=== PATIENT | male | born 1945 | race Caucasian/White ===

== ENCOUNTER → 2019-05-01 | Day surgery (SDC) | payer MEDICARE ==
[2019-04-24 13:40] LABS: BASOPHILS % 0.1 % (0.0-1.0); HEMATOCRIT 31.7 % (38.2-49.6); HEMOGLOBIN 9.8 g/dL (14.0-18.0); LYMPHOCYTES # (AUTO) 1.6 (1.0-3.2); LYMPHOCYTES % 11.8 % (18.0-39.1); MEAN CORPUSCULAR HEMOGLOBIN 27.4 pg (28-32); MEAN CORPUSCULAR HGB CONC 30.9 g/dL (31-35); MEAN CORPUSCULAR VOLUME 88.5 fL (81-99); MONOCYTES # (AUTO) 1.1 (0.2-0.8); MONOCYTES % 7.9 % (4.4-11.3); NEUTROPHILS # (AUTO) 10.8 (2.1-6.9); NEUTROPHILS % 79.5 % (38.7-80.0); PLATELET COUNT 223 x10e3/uL (140-360); RED BLOOD COUNT 3.58 x10e6/uL (4.3-5.7); RED CELL DISTRIBUTION WIDTH 14.6 % (11.7-14.4)
[~2019-05-01] MED LIST: ASPIR 8181 MG PO; ATORVASTATIN CA20 MG PO; CETIRIZINE HCL10 MG PO; FLOMAX0.4 MG PO; FLONASE; LEXAPRO10 MG PO; LIDOCAINE HCL 2% LOCAL INJ 5 ML SDV VIAL INJ ONE; LYRICA50 MG PO; METOPROLOL SUCC25 MG PO; MIDAZOLAM HCL 2 MG/2 ML VIAL ONE; MONTELUKAST SOD10 MG PO; NEBULIZER INH; PANTOPRAZOLE SO40 MG PO; PLAVIX75 MG PO; PROBIOTIC & AC1 EACH PO; PROPOFOL IV EMULSION 10 MG/ML 50 ML VIAL ONE; SPIRIVA18 MCG INH; SYMBICORT 16010.2 GM INH; VIT B12 PO
--- OUTSIDE RECORDS SUMMARY | 2019-05-01 06:58 | XMS REPORT ---
Author Author [facility] Address Unknown Phone Unavailable Care Team Providers Care Satellite Tv Technician Name Role Phone Unavailable Unavailable Payers Payer Name Policy Type Policy Number Effective Date Expiration Date Problems This patient has no known problems. Allergies, Adverse Reactions, Alerts Allergy Name Allergy Type Status Severity Reaction(s) Onset Date Inactive Date Treating Clinician Comments No Known Allergies DA Active U 2019-03-25 00:00:00 No Known Allergies DA Active U 2019-02-19 00:00:00 No Known Allergies DA Active U 2019-01-06 00:00:00 No Known Allergies DA Active U 2019-01-03 00:00:00 No Known Allergies DA Active U 2018-12-11 00:00:00 No Known Allergies DA Active U 2018-09-16 00:00:00 No Known Drug Allergies DA Active U 2018-04-09 00:00:00 No Known Drug Allergies DA Active U 2018-03-14 00:00:00 Medications This patient has no known medications. Results Test Description Test Time Test Comments Text Results Atomic Results Result Comments - XR FLUORO FOR SPINE INJ 2019-04-22 17:49:00 Patient Name: NELSY PEDRO Unit No: [id number] EXAMS: CPT CODE: [id number] XR FLUORO FOR SPINE INJ 01649 LUMBAR EPIRADICULAR INJECTION REFERRAL PHYSICIAN: Alejandro Vázquez M.D. PREOPERATIVE DIAGNOSIS: Lumbar Radiculitis POSTOPERATIVE DIAGNOSIS: Status post L4-S1 fusion with radiculitis left lower extremity PROCEDURES PERFORMED: Fluoroscopically guided needle localization of the left L4 and left L5 spinal nerves with transforaminal epidurograms and epidural injection of local anesthetic and steroid. FINDINGS: All fusion hardware appears intact including the interbody spacers. Flow was limited through the left L5-S1 foramen with poor containment within the sleeve. Fairly good flow seen through the foramen at L4-5 with good proximal flow across the L3-4 disc without displacement. Provocation was partially concordant for usual pain at L5. Anesthetic response was positive with the patient noting complete relief of his left lower extremity pain. Preinjection VAS 8/10. Postinjection VAS 0/10. Steroid response pending follow-up. ESTIMATED BLOOD LOSS: Minimal ANESTHESIA: TIVA COMPLICATIONS: None DETAILS OF PROCEDURE: After obtaining stable vital signs, informed consent and IV access, with no contraindications, the patient was taken to the operating room and placed in a prone position with all extremities padded and appropriate monitors placed. The patient was sterilely prepped and draped over the lumbosacral spine. Using fluoroscopic visualization the insertion sites were marked for paravertebral approaches and using standard technique, a 25 gauge needle was advanced to the base of each pedicle without paresthesias. Isovue-300 contrast 0.2 mL of was injected incrementally with frequent negative aspirations to produce each epidurogram. There were no signs of intravascular or intrathecal uptake. Bupivicaine 0.75% 0.25 mL with lidocaine 4% 0.5 mL and Decadron 10 mg was then incrementally injected with frequent negative aspirations and again there were no signs of intravascular or intrathecal uptake. The needles were removed and the patient was taken to the PACU in good condition. at 9061 Reported and signed by: Cy Oconnor M.D. CC: Technologist: Debra Cardoza(Zach) Transcribed D/ (0097) [facility] [place] NAME: NELSY PEDRO [address] [facility] PHYS: Cy Mchugh MD [place], [place] [address] : 1945 AGE: 73 SEX: M LOC: [place] PHONE #: [phone] EXAM DATE: 04/22/2019 STATUS: REG [facility] FAX #: [phone] RAD #: D/C DT PAGE 1 Signed Report Patient Name: NELSY PEDRO Unit No: [id number] EXAMS: CPT CODE: [id number] XR FLUORO FOR SPINE INJ 93981 <Continued> Orig Print D/T: S: 04/22/2019 (1753) [facility] [place] NAME: NELSY PEDRO [address] [facility] PHYS: Cy Mchugh MD [place], [place] [address] : 1945 AGE: 73 SEX: M LOC: [place] PHONE #: [phone] EXAM DATE: 04/22/2019 STATUS: REG [facility] FAX #: [phone] RAD #: D/C DT PAGE 2 Signed Report - XR PELVIS 1/2 VIEWS 2019-04-17 11:02:00 Patient Name: NELSY PEDRO Unit No: [id number] Report Has Been Amended EXAMS: CPT CODE: [id number] XR PELVIS 1/2 VIEWS 01090 Addendum - 04/17/2019 SIGNED 04/17/2019 ADDENDUM: [id number] Addendum: COMMENT: There is a 5 mm nonenhancing left foraminal low signal focus projecting from the disc space. This has an appearance compatible with an approximately 7 mm recurrent disc herniation which impinges and deforms left L4 nerve root within the left neural foramen. This is best seen on sagittal T2-weighted sequence image #4. This finding is discussed with Dr. Vázquez. at 1102 Reported and signed by: Georgette Horta MD Report MRI OF THE LUMBAR SPINE WITH AND WITHOUT CONTRAST DIAGNOSIS: 1. At L1-2, disc desiccation. No central canal or foraminal stenosis. Mild facet arthropathy. 2. At L2-3, mild disc degeneration. Mild disc bulging. Moderate central canal stenosis. Mild to moderate bilateral facet arthropathy. No foraminal stenosis. 3. At L3-4, disc desiccation. Mild to moderate central canal stenosis. Mild bilateral facet arthropathy. No foraminal stenosis. 4. At L4-5, patient status post anterior discectomy and laminectomy. There is enhancing epidural fibrosis. Moderate bilateral foraminal stenosis. 5. At L5-S1, patient status post anterior discectomy and laminectomy. There is enhancing epidural fibrosis. Moderate bilateral foraminal stenosis. COMMENT: COMPARISON: The current exam is compared to a preoperative MRI lumbar spine dated December 11, 2018. Sagittal and axial T1 weighted pre- and postcontrast, sagittal and axial T2 and sagittal STIR sequences are obtained of the lumbar spine. The lumbar vertebrae are within normal limits in signal. The findings [facility] NAME: NELSY PEDRO [address] [facility] PHYS: Alejandro Bolivar MD : 1945 AGE: 73 SEX: M [place] [address] LOC: Y.MRI PHONE #: [phone] EXAM DATE: 03/25/2019 STATUS: DEP CLI FAX #: [phone] RAD #: D/C DT PAGE 1 Signed Report (CONTINUED) Patient Name: NELSY PEDRO Unit No: [id number] Report Has Been Amended EXAMS: CPT CODE: [id number] XR PELVIS 1/2 VIEWS 76198 <Continued> are as above. The conus is in the expected location. AP VIEW PELVIS COMMENT: Patient status post total bilateral hip arthroplasty. No evidence of periprosthetic fracture. Moderate degeneration of the pubic symphysis. at 0862 Reported and signed by: Georgette Horta MD CC: Alejandro Vázquez M.D. Technologist: RT. Ann(R) Transcribed D/ (5983) tBELENGVG [facility] NAME: NELSY PEDRO [address] [facility] PHYS: Alejandro Bolivar MD : 1945 AGE: 73 SEX: M [place] [address] LOC: Y.MRI PHONE #: [phone] EXAM DATE: 03/25/2019 STATUS: DEP CLI FAX #: [phone] RAD #: D/C DT PAGE 2 Signed Report Patient Name: NELSY PEDRO Unit No: [id number] Report Has Been Amended EXAMS: CPT CODE: [id number] XR PELVIS 1/2 VIEWS 24038 <Continued> Orig Print D/T: S: 03/25/2019 (2420) [facility] NAME: NELSY PEDRO [address] [facility] PHYS: Alejandro Bolivar MD : 1945 AGE: 73 SEX: M [place], [place] [address] LOC: Y.MRI PHONE #: [phone] EXAM DATE: 03/25/2019 STATUS: DEP CLI FAX #: [phone] RAD #: D/C DT PAGE 3 Signed Report - MRI L-SPINE W WO CON 2019-04-17 11:02:00 Patient Name: NELSY PEDRO Unit No: [id number] Report Has Been Amended EXAMS: CPT CODE: [id number] MRI L-SPINE W WO CON 88927 Addendum - 04/17/2019 SIGNED 04/17/2019 ADDENDUM: [id number] MRI/[id number] Addendum: COMMENT: There is a 5 mm nonenhancing left foraminal low signal focus projecting from the disc space. This has an appearance compatible with an approximately 7 mm recurrent disc herniation which impinges and deforms left L4 nerve root within the left neural foramen. This is best seen on sagittal T2-weighted sequence image #4. This finding is discussed with Dr. Vázquez. at 1102 Reported and signed by: Georgette Horta MD Report MRI OF THE LUMBAR SPINE WITH AND WITHOUT CONTRAST DIAGNOSIS: 1. At L1-2, disc desiccation. No central canal or foraminal stenosis. Mild facet arthropathy. 2. At L2-3, mild disc degeneration. Mild disc bulging. Moderate central canal stenosis. Mild to moderate bilateral facet arthropathy. No foraminal stenosis. 3. At L3-4, disc desiccation. Mild to moderate central canal stenosis. Mild bilateral facet arthropathy. No foraminal stenosis. 4. At L4-5, patient status post anterior discectomy and laminectomy. There is enhancing epidural fibrosis. Moderate bilateral foraminal stenosis. 5. At L5-S1, patient status post anterior discectomy and laminectomy. There is enhancing epidural fibrosis. Moderate bilateral foraminal stenosis. COMMENT: COMPARISON: The current exam is compared to a preoperative MRI lumbar spine dated December 11, 2018. Sagittal and axial T1 weighted pre- and postcontrast, sagittal and axial T2 and sagittal STIR sequences are obtained of the lumbar spine. The lumbar vertebrae are within normal limits in signal. The findings [facility] NAME: NELSY PEDRO [address] [facility] PHYS: Alejandro Bolivar MD : 1945 AGE: 73 SEX: M [place] [address] LOC: Y.MRI PHONE #: [phone] EXAM DATE: 03/25/2019 STATUS: DEP CLI FAX #: [phone] RAD #: D/C DT PAGE 1 Signed Report (CONTINUED) Patient Name: NELSY PEDRO Unit No: [id number] Report Has Been Amended EXAMS: CPT CODE: [id number] MRI L- SPINE W WO CON 03441 <Continued> are as above. The conus is in the expected location. AP VIEW PELVIS COMMENT: Patient status post total bilateral hip arthroplasty. No evidence of periprosthetic fracture. Moderate degeneration of the pubic symphysis. at 5316 Reported and signed by: Georgette Horta MD CC: Alejandro Vázquez M.D. Technologist: SANJU CROUCH RT(R) Transcribed D/ (5097) BudGVG [facility] NAME: NELSY PEDRO [address] [facility] PHYS: Alejandro Bolivar MD : 1945 AGE: 73 SEX: M [place] [address] LOC: Y.MRI PHONE #: [phone] EXAM DATE: 03/25/2019 STATUS: DEP CLI FAX #: [phone] RAD #: D/C DT PAGE 2 Signed Report Patient Name: NELSY PEDRO Unit No: [id number] Report Has Been Amended EXAMS: CPT CODE: [id number] MRI L- SPINE W WO CON 04079 <Continued> Orig Print D/T: S: 03/25/2019 (5410) [facility] NAME: NELSY PEDRO [address] [facility] PHYS: Alejandro Bolivar MD : 1945 AGE: 73 SEX: M [place] [address] LOC: Y.MRI PHONE #: [phone] EXAM DATE: 03/25/2019 STATUS: DEP CLI FAX #: [phone] RAD #: D/C DT PAGE 3 Signed Report - XR PELVIS 1/2 VIEWS 2019-03-25 23:47:00 Patient Name: NELSY PEDRO Unit No: [id number] EXAMS: CPT CODE: [id number] XR PELVIS 1/2 VIEWS 73111 MRI OF THE LUMBAR SPINE WITH AND WITHOUT CONTRAST DIAGNOSIS: 1. At L1-2, disc desiccation. No central canal or foraminal stenosis. Mild facet arthropathy. 2. At L2-3, mild disc degeneration. Mild disc bulging. Moderate central canal stenosis. Mild to moderate bilateral facet arthropathy. No foraminal stenosis. 3. At L3-4, disc desiccation. Mild to moderate central canal stenosis. Mild bilateral facet arthropathy. No foraminal stenosis. 4. At L4-5, patient status post anterior discectomy and laminectomy. There is enhancing epidural fibrosis. Moderate bilateral foraminal stenosis. 5. At L5-S1, patient status post anterior discectomy and laminectomy. There is enhancing epidural fibrosis. Moderate bilateral foraminal stenosis. COMMENT: COMPARISON: The current exam is compared to a preoperative MRI lumbar spine dated December 11, 2018. Sagittal and axial T1 weighted pre- and postcontrast, sagittal and axial T2 and sagittal STIR sequences are obtained of the lumbar spine. The lumbar vertebrae are within normal limits in signal. The findings are as above. The conus is in the expected location. AP VIEW PELVIS COMMENT: Patient status post total bilateral hip arthroplasty. No evidence of periprosthetic fracture. Moderate degeneration of the pubic symphysis. at 0844 Reported and signed by: Georgette Horta MD CC: Alejandro Vázquez M.D. Technologist: Azeb Clinton RT.(R) Transcribed D/ (2495) t.ANITHAR.GVG [facility] NAME: NELSY PEDRO [address] [facility] PHYS: Alejandro Bolivar MD : 1945 AGE: 73 SEX: M [place] [address] LOC: Y.MRI PHONE #: [phone] EXAM DATE: 03/25/2019 STATUS: REG CLI FAX #: [phone] RAD #: D/C DT PAGE 1 Signed Report Patient Name: NELSY PEDRO Unit No: [id number] EXAMS: CPT CODE: [id number] XR PELVIS 1/2 VIEWS 90097 <Continued> Orig Print D/T: S: 03/25/2019 (6743) [facility] NAME: NELSY PEDRO [address] [place] [address] PHYS: Alejandro Bolivar MD : 1945 AGE: 73 SEX: M [place] [address] LOC: Y.MRI PHONE #: [phone] EXAM DATE: 03/25/2019 STATUS: REG CLI FAX #: [phone] RAD #: D/C DT PAGE 2 Signed Report - MRI L-SPINE W WO CON 2019-03-25 23:47:00 Patient Name: NELSY PEDRO Unit No: [id number] EXAMS: CPT CODE: [id number] MRI L-SPINE W WO CON 85972 MRI OF THE LUMBAR SPINE WITH AND WITHOUT CONTRAST DIAGNOSIS: 1. At L1-2, disc desiccation. No central canal or foraminal stenosis. Mild facet arthropathy. 2. At L2-3, mild disc degeneration. Mild disc bulging. Moderate central canal stenosis. Mild to moderate bilateral facet arthropathy. No foraminal stenosis. 3. At L3-4, disc desiccation. Mild to moderate central canal stenosis. Mild bilateral facet arthropathy. No foraminal stenosis. 4. At L4-5, patient status post anterior discectomy and laminectomy. There is enhancing epidural fibrosis. Moderate bilateral foraminal stenosis. 5. At L5-S1, patient status post anterior discectomy and laminectomy. There is enhancing epidural fibrosis. Moderate bilateral foraminal stenosis. COMMENT: COMPARISON: The current exam is compared to a preoperative MRI lumbar spine dated December 11, 2018. Sagittal and axial T1 weighted pre- and postcontrast, sagittal and axial T2 and sagittal STIR sequences are obtained of the lumbar spine. The lumbar vertebrae are within normal limits in signal. The findings are as above. The conus is in the expected location. AP VIEW PELVIS COMMENT: Patient status post total bilateral hip arthroplasty. No evidence of periprosthetic fracture. Moderate degeneration of the pubic symphysis. at 2345 Reported and signed by: Geogrette Horta MD CC: Alejandro Vázquez M.D. Technologist: SANJU CROUCH RT(R) Transcribed D/ (1264) tGAVIN.GVG [facility] NAME: NELSY PEDRO [address] [facility] PHYS: Alejandro Bolivar MD : 1945 AGE: 73 SEX: M [place], [place] [address] LOC: Y.MRI PHONE #: [phone] EXAM DATE: 03/25/2019 STATUS: REG CLI FAX #: [phone] RAD #: D/C DT PAGE 1 Signed Report Patient Name: NELSY PEDRO Unit No: [id number] EXAMS: CPT CODE: [id number] MRI L-SPINE W WO CON 03296 <Continued> Orig Print D/T: S: 03/25/2019 (4784) [facility] NAME: NELSY PEDRO [address] [facility] PHYS: Alejandro Bolivar MD : 1945 AGE: 73 SEX: M [place], [place] [address] LOC: Y.MRI PHONE #: [phone] EXAM DATE: 03/25/2019 STATUS: REG CLI FAX #: [phone] RAD #: D/C DT PAGE 2 Signed Report - CT L-SPINE W/O CONTRAST 2019-03-10 16:45:00 Patient Name: NELSY PEDRO Unit No: [id number] EXAMS: CPT CODE: [id number] CT L-SPINE W/O CONTRAST 19[address] DIAGNOSIS: 1. At L1-2 there is no evidence for disc bulge or herniation, bony canal or foraminal stenosis. 2. At L2-3 there is a slight retrolisthesis and associated disc bulging with slight narrowing of the foramina. Mild narrowing of the central canal is seen. 3. At L3-4 there is a mild retrolisthesis with disc bulging and slight narrowing of the canal and foramina. 4. At L4-5 the patient is status post discectomy and graft with pedicle screws and rods in the proper position.. Decompression of the canal has been performed. There is mild lateral foraminal narrowing. 5. At L5-S1 the patient is status post discectomy and graft with endplate spur formation and mild foraminal narrowing. Pedicle screws and rods are present in the proper position. COMMENT: COMPARISON: No prior exams available. Scans were performed from L1 to S1 without contrast and reconstructions were obtained. Postsurgical changes are as noted. Disc configurations are as described. Spondylitic changes are as noted. The conus is in the expected location. Atherosclerotic calcification is seen in the aorta and iliac vessels without evidence for aneurysmal dilatation. The description these findings assumes a normal count of 5 lumbar type vertebra. at 5103 Reported and signed by: Alejandro Russell MD CC: Alejandro Vázquez DO Technologist: Aston Garcia,RT(R) CTDI: DLP: 0 Trnscrpt: 03/10/2019 (3856) t.ANITHAR.JCL [facility] NAME: NELSY PEDRO [address] [facility] PHYS: Alejandro Whitney : 1945 AGE: 73 SEX: M [place] [address] LOC: Y.RAD PHONE #: [phone] EXAM DATE: 03/10/2019 STATUS: REG CLI FAX #: [phone] RAD #: D/C DT PAGE 1 Signed Report Patient Name: NELSY PEDRO Unit No: [id number] EXAMS: CPT CODE: [id number] CT L-SPINE W/O CONTRAST 00267 <Continued> Orig Print D/T: S: 03/10/2019 (7535) [facility] NAME: NELSY PEDRO [address] [facility] PHYS: DANETTEJaviAlejandro Rebollar : 1945 AGE: 73 SEX: M [place] [address] LOC: Y.RAD PHONE #: [phone] EXAM DATE: 03/10/2019 STATUS: REG CLI FAX #: [phone] RAD #: D/C DT PAGE 2 Signed Report HGB HCT 2019-02-22 06:53:00 HEMOGLOBIN (test code=HGB) 9.8 g/dL 12-16 HEMATOCRIT (test code=HCT) 31.0 % 37-47 HGB [id number] 06:23:00* Test Item Value Reference Range Comments HEMOGLOBIN (test code=HGB) 9.9 g/dL 12-16 HEMATOCRIT (test code=HCT) 30.5 % 37-47 - XR SPINE 1 V SPEC [id number] 10:43:00 Patient Name: NELSY PEDRO Unit No: [id number] EXAMS: CPT CODE: [id number] XR SPINE 1 V SPEC LEVEL 20679 INTRAOPERATIVE LATERAL LUMBAR SPINE Film 1. Markers are posterior to L2-3 and S1. Film 2. A surgical instrument is on the posterior elements of L4. Film 3. Anterior and posterior fusion has been performed from L4 to S1. at 1043 Reported and signed by: Alejandro Russell MD CC: Alejandro Vázquez M.D. Technologist: Nani Salas(R) Transcribed D/ (1043) DhavalL [facility] NAME: NELSY PEDRO [address] [place] [address] PHYS: Alejandro Bolivar MD : 1945 AGE: 73 SEX: M [place] [address] LOC: Y.507 A PHONE #: [phone] EXAM DATE: 02/19/2019 STATUS: ADM IN FAX #: [phone] RAD #: D/C DT PAGE 1 Signed Report Patient Name: NELSY PEDRO Unit No: [id number] EXAMS: CPT CODE: [id number] XR SPINE 1 V SPEC LEVEL 03549 <Continued> Orig Print D/T: S: 02/20/2019 (0297) [facility] NAME: NELSY PEDRO [address] [place] [address] PHYS: Alejandro Bolivar MD : 1945 AGE: 73 SEX: M [place] [address] LOC: Y.507 A PHONE #: [phone] EXAM DATE: 02/19/2019 STATUS: ADM IN FAX #: [phone] RAD #: D/C DT PAGE 2 Signed Report - XR SPINE 1 V SPEC [id number] 10:43:00 Patient Name: NELSY PEDRO Unit No: [id number] EXAMS: CPT CODE: [id number] XR SPINE 1 V SPEC LEVEL 83478 INTRAOPERATIVE LATERAL LUMBAR SPINE Film 1. Markers are posterior to L2-3 and S1. Film 2. A surgical instrument is on the posterior elements of L4. Film 3. Anterior and posterior fusion has been performed from L4 to S1. at 1043 Reported and signed by: Alejandro Russell MD CC: Alejandro Vázquez M.D. Technologist: MARY HERNANDEZ. RT(R) Transcribed D/ (9027) Leyda [facility] NAME: NELSY PEDRO [address] [facility] PHYS: Alejandro Bolivar MD : 1945 AGE: 73 SEX: M [place], [place] [address] LOC: Y.507 A PHONE #: [phone] EXAM DATE: 02/19/2019 STATUS: ADM IN FAX #: [phone] RAD #: D/C DT PAGE 1 Signed Report Patient Name: NELSY PEDRO Unit No: [id number] EXAMS: CPT CODE: [id number] XR SPINE 1 V SPEC LEVEL 55397 <Continued> Orig Print D/T: S: 02/20/2019 (7536) [facility] NAME: NELSY PEDRO [address] [facility] PHYS: Alejandro Bolivar MD : 1945 AGE: 73 SEX: M [place], [place] [address] LOC: Y.507 A PHONE #: [phone] EXAM DATE: 02/19/2019 STATUS: ADM IN FAX #: [phone] RAD #: D/C DT PAGE 2 Signed Report - XR SPINE 1 V SPEC [id number] 10:43:00 Patient Name: NELSY PEDRO Unit No: [id number] EXAMS: CPT CODE: [id number] XR SPINE 1 V SPEC LEVEL 74905 INTRAOPERATIVE LATERAL LUMBAR SPINE Film 1. Markers are posterior to L2-3 and S1. Film 2. A surgical instrument is on the posterior elements of L4. Film 3. Anterior and posterior fusion has been performed from L4 to S1. at 1043 Reported and signed by: Alejandro Russell MD CC: Alejandro Vázquez M.D. Technologist: BINDU AGOSTO RT(R) Transcribed D/ (1047) BudJCL [facility] NAME: NELSY PEDRO [address] [facility] PHYS: Alejandro Bolivar MD : 1945 AGE: 73 SEX: M [place], [place] [address] LOC: Y.507 A PHONE #: [phone] EXAM DATE: 02/19/2019 STATUS: ADM IN FAX #: [phone] RAD #: D/C DT PAGE 1 Signed Report Patient Name: NELSY PEDRO Unit No: [id number] EXAMS: CPT CODE: [id number] XR SPINE 1 V SPEC LEVEL 39639 <Continued> Orig Print D/T: S: 02/20/2019 (104) [facility] NAME: NELSY PEDRO [address] [facility] PHYS: Alejandro Bolivar MD : 1945 AGE: 73 SEX: M [place] [address] LOC: Y.507 A PHONE #: [phone] EXAM DATE: 02/19/2019 STATUS: ADM IN FAX #: [phone] RAD #: D/C DT PAGE 2 Signed Report BASIC METABOLIC [id number] 06:37:00* Test Item Value Reference Range Comments SODIUM (test code=NA) 140 mmol/L 136-145 POTASSIUM (test code=K) 5.4 mmol/L 3.5-5.1 CHLORIDE (test code=CL) 107.0 mmol/L 98-107 CARBON DIOXIDE (test code=CO2) 25.1 mmol/L 21-32 GLUCOSE (test code=GLU) 166 mg/dL 70-110 BLOOD UREA NITROGEN (test code=BUN) 14 mg/dL 7-18 GLOMERULAR FILTRATION RATE (test code=GFR) 73.7 >60 Unit of measure: mL/min/1.73 [id number] Range:Healthy Adults >90 mL/min/1.73 m2 For Chronic Kidney Disease: Stage II Mild Decrease in GFR 60-90 Stage III Moderate Decrease in GFR 30-59 Stage IV Severe Decrease in GFR 15-29 Stage V Kidney Failure <15 CREATININE (test code=CREAT) 1.00 mg/dL 0.55-1.30 CALCIUM (test code=CA) 8.4 mg/dL 8.2-10.1 HGB [id number] 05:54:00* Test Item Value Reference Range Comments HEMOGLOBIN (test code=HGB) 11.0 g/dL 12-16 HEMATOCRIT (test code=HCT) 34.9 % 37-47 ACUTE HEPATITIS [id number] 14:55:00* Test Item Value Reference Range Comments AB HEPATITIS A IGM (test code=HAVMAB) NONREACTIVE NONREACTIVE AG HEPATITIS B SURFACE (test code=HBSAG) NONREACTIVE NONREACTIVE AB HEPATITIS B CORE IGM (test code=HBCMAB) NONREACTIVE NONREACTIVE AB HEPATITIS C (test code=HCVAB) NONREACTIVE NONREACTIVE SIGNAL TO CUTOFF (test code=CUTOFF) 0.06 <0.80 AB HIV 1 14:55:00* Test Item Value Reference Range Comments AB HIV 1 2 (test code=FEL02RD) NONREACTIVE NONREACTIVE Done by [employer] HIV Ag/Ab Combo Screen ACUTE HEPATITIS [id number] 14:55:00* Test Item Value Reference Range Comments AB HEPATITIS A IGM (test code=HAVMAB) NONREACTIVE NONREACTIVE AG HEPATITIS B SURFACE (test code=HBSAG) NONREACTIVE NONREACTIVE AB HEPATITIS B CORE IGM (test code=HBCMAB) NONREACTIVE NONREACTIVE AB HEPATITIS C (test code=HCVAB) NONREACTIVE NONREACTIVE SIGNAL TO CUTOFF (test code=CUTOFF) 0.06 <0.80 AB HIV 14:55:00* Test Item Value Reference Range Comments AB HIV 1 (test code=HIV1AB) NONREACTIVE NONREACTIVE Done by [employer] HIV Ag/Ab Combo Screen ACUTE HEPATITIS [id number] 14:21:00* Test Item Value Reference Range Comments AB HEPATITIS A IGM (test code=HAVMAB) NONREACTIVE AG HEPATITIS B SURFACE (test code=HBSAG) NONREACTIVE NONREACTIVE AB HEPATITIS B CORE IGM (test code=HBCMAB) AB HEPATITIS C (test code=HCVAB) NONREACTIVE SIGNAL TO CUTOFF (test code=CUTOFF) AB HIV 14:21:00* Test Item Value Reference Range Comments AB HIV 1 (test code=HIV1AB) NONREACTIVE ACUTE HEPATITIS [id number] 14:20:00* Test Item Value Reference Range Comments AB HEPATITIS A IGM (test code=HAVMAB) NONREACTIVE AG HEPATITIS B SURFACE (test code=HBSAG) NONREACTIVE NONREACTIVE AB HEPATITIS B CORE IGM (test code=HBCMAB) NONREACTIVE AB HEPATITIS C (test code=HCVAB) NONREACTIVE SIGNAL TO CUTOFF (test code=CUTOFF) <0.80 AB HIV 1 14:20:00* Test Item Value Reference Range Comments AB HIV 1 2 (test code=HJE30BN) NONREACTIVE BASIC METABOLIC [id number] 14:12:00* Test Item Value Reference Range Comments SODIUM (test code=NA) 139 mEq/L 135-145 POTASSIUM (test code=K) 4.0 mEq/L 3.5-5.0 CHLORIDE (test code=CL) 103 mEq/L 100-115 CARBON DIOXIDE (test code=CO2) 26 mEq/L 22-31 GLUCOSE (test code=GLU) 100 mg/dL 65-110 BLOOD UREA NITROGEN (test code=BUN) 16 mg/dL 7-18 GLOMERULAR FILTRATION RATE (test code=GFR) 59.7 >60 Unit of measure: mL/min/1.73 [id number] Range:Healthy Adults >90 mL/min/1.73 m2 For Chronic Kidney Disease: Stage II Mild Decrease in GFR 60-90 Stage III Moderate Decrease in GFR 30-59 Stage IV Severe Decrease in GFR 15-29 Stage V Kidney Failure <15Unit of measure: mL/min/1.73 [id number] Range:Healthy Adults >90 mL/min/1.73 m2 For Chronic Kidney Disease: Stage II Mild Decrease in GFR 60-90 Stage III Moderate Decrease in GFR 30-59 Stage IV Severe Decrease in GFR 15-29 Stage V Kidney Failure <15 CREATININE (test code=CREAT) 1.2 mg/dL 0.7-1.3 CALCIUM (test code=CA) 9.0 mg/dL 8.4-10.2 BASIC METABOLIC [id number] 14:11:00* Test Item Value Reference Range Comments SODIUM (test code=NA) 139 mEq/L 135-145 POTASSIUM (test code=K) 4.0 mEq/L 3.5-5.0 CHLORIDE (test code=CL) 103 mEq/L 100-115 CARBON DIOXIDE (test code=CO2) 26 mEq/L 22-31 GLUCOSE (test code=GLU) 100 mg/dL 65-110 BLOOD UREA NITROGEN (test code=BUN) 16 mg/dL 7-18 GLOMERULAR FILTRATION RATE (test code=GFR) 60 ml/min >60 CREATININE (test code=CREAT) 1.2 mg/dL 0.7-1.3 CALCIUM (test code=CA) 9.0 mg/dL 8.4-10.2 PROTHROMBIN [id number] 13:37:00* Test Item Value Reference Range Comments PROTHROMBIN TIME PATIENT (test code=PTP) 13.0 secs 10.1-12.5 INTERNATIONAL NORMAL RATIO (test code=INR) 1.15 <2.0 RECOMMENDED THERAPEUTIC RANGE FOR ORAL ANTICOAGULANTTREATMENT: CONDITION INRProphylaxis of venous thrombosis in 2.0 - 3.0 high-risk medical or surgical patientsTreatment of venous thrombosis 2.0 - 3.0Prevention of embolism 2.0 - 3.0Prevention of recurrent embolism, or 3.0 - 4.5 patients with mechanical prosthetic intravascular valves IS PATIENT ON ANTICOAGULANTS ? YLIST ANTICOAGULANT/ANTI PLT MEDICATION : OtherHa s Lab been notified if Patient is on Heparin Drip? NOTHROMBOPLASTIN TIME PARTIAL 2019-01-30 13:37:00* Test Item Value Reference Range Comments PTT ACTIVATED (test code=APTT) 27.2 secs 24.9-37.0 IS PATIENT ON ANTICOAGULANTS ? YLIST ANTICOAGULANT/ANTI PLT MEDICATION : OtherHa s Lab been notified if Patient is on Heparin Drip? NOCBC W/AUTO [id number] 11:53:00* Test Item Value Reference Range Comments WHITE BLOOD CELL (test code=WBC) 8.0 K/mm3 5.7-10.5 RED BLOOD CELL (test code=RBC) 4.25 M/mm3 4.2-5.4 HEMOGLOBIN (test code=HGB) 12.1 g/dL 12-16 HEMATOCRIT (test code=HCT) 37.7 % 37-47 MEAN CELL VOLUME (test code=MCV) 89 fL 80-98 MEAN CELL HGB (test code=MCH) 28.5 pg 27-34 MEAN CELL HGB CONCENTRATION (test code=MCHC) 32.1 g/dL 30.8-34.1 RED CELL DISTRIBUTION WIDTH (test code=RDW) 14.8 % 11-16 PLT (test code=PLT) 251 K/mm3 130-400 MEAN PLATELET VOLUME (test code=MPV) 9.9 fL 8.9-12.1 NEUTROPHIL % (test code=NT%) 64.7 % 45-70 LYMPHOCYTE % (test code=LY%) 17.9 % 20-40 MONOCYTE % (test code=MO%) 9.6 % 3-10 EOSINOPHIL % (test code=EO%) 6.4 % 1-5 BASOPHIL % (test code=BA%) 0.8 % 0.0-1.1 NEUTROPHIL # (test code=NT#) 5.18 K/mm3 2.00-7.50 LYMPHOCYTE # (test code=LY#) 1.43 K/mm3 1.50-4.00 MONOCYTE # (test code=MO#) 0.77 K/mm3 0.2-0.8 EOSINOPHIL # (test code=EO#) 0.51 K/mm3 0.04-0.4 BASOPHIL # (test code=BA#) 0.06 K/mm3 0.02-0.10 MANUAL DIFF REQUIRED (test code=MDIFF) NO MANUAL DIFF NUCLEATED RED BLOOD CELL (test code=NRBC) 0 % 0-0 - XR FLUORO FOR SPINE [id number] 13:01:00 Patient Name: NELSY PEDRO Unit No: [id number] EXAMS: CPT CODE: [id number] XR FLUORO FOR SPINE INJ 05564 LUMBAR EPIRADICULAR INJECTION REFERRAL PHYSICIAN: Alejandro Vázquez M.D. PREOPERATIVE DIAGNOSIS: Lumbar Radiculitis POSTOPERATIVE DIAGNOSIS: Possible symptomatically left L3-4 or L5 radicular pain PROCEDURES PERFORMED: Fluoroscopically guided needle localization of the left L4 and left L5 spinal nerves with transforaminal epidurograms and epidural injection of local anesthetic and steroid. FINDINGS: Fairly good flow seen through the left L5-S1 foramen. More patchy flow seen through the left L4- 5 foramen. Good proximal flow was seen in the left L4 injection however flow was limited in the left L4-5 lateral recess. Provocation with injection was negative. Anesthetic response was positive with the patient noting complete relief of his left low back and lower extremity pain. Pre injection VAS 3/10. Postinjection VAS 0/10. Steroid response pending foll ow-up. ESTIMATED BLOOD LOSS: Minimal ANESTHESIA: T HARRISON COMPLICATIONS: None DETAILS OF PROCEDURE: After obtaining stable vital signs, informed consent and IV access, with no contraindications, the patient was taken to the operating room and [facility] ed in a prone position with all extremities padded and appropriate monitor s placed. The patient was sterilely prepped and draped over the lumbosacra l spine. Using fluoroscopic visualization the insertion sites were marked for paravertebral approaches and using standard technique, a 25 gauge ne edle was advanced to the base of each pedicle without paresthesias. Isovue -300 contrast 0.2 mL of was injected incrementally with frequent negative aspirations to produce each epidurogram. There were no signs of intravasc ular or intrathecal uptake. Bupivicaine 0.75% 0.25 mL with lidocaine 4% 0. 5 mL and Decadron 8 mg was then incrementally injected with frequent negative aspirations and again there were no signs of intravascular or in trathecal uptake. The needles were removed and the patient was taken to [facility] PACU in good condition. at 1301 Reported and signed by: Cy Oconnor M.D. CC: Waqas Oconnor MD Technologist: DONN MARCELO RT (R) Transcribed D/ (5204) stefani MOSS.[facility] NAME: NELSY GARAY [address] [facility] PHYS: Cy Mchugh MD [place], [place] [address] : 1945 A GE: 73 SEX: M L OC: [place] PHONE #: [phone] EXAM DATE: 01/06/2019 STATU S: REG [facility] FAX #: [phone] RAD #: D/C DT PAGE 1 Signed Report Patient Name: NELSY PEDRO Unit No: [id number] EX AMS: CPT CODE: [id number] XR FLUORO FOR SPINE INJ 03427 <Continued> Orig Print D/T: S: 01/06/2019 (3514) [facility] NAME: NELSY PEDRO [address] [facility] PHYS: FLO zamudio,Cy Lopez MD [place], [place] [address] : 1945 AGE: 73 SEX: M LOC: [place] PHONE #: [phone] EXAM DATE: 01/06/2019 STATUS: REG [facility] FAX #: [phone] RAD #: D/C DT PAGE 2 Signed Report - MRI L-SPINE W WO [id number] 13:02:00 Patient Name: NELSY PEDRO Unit No: [id number] EXAMS: CPT CODE: [id number] MRI L-SPINE W WO CON 67141 TECHNIQUE: Multiplanar, multisequence MRI examination performed of the lumbar spine with and without intravenous contrast material. COMPARISON: MR dated 11/16/2017 FINDINGS: Interval laminectomy changes at L4-L5 and L5-S1 noted. Alignment: Slight spondylolisthesis of L4-L5. Slight retrolisthesis of L2-L3. Bone Lesion: No suspicious osseous lesion. Fracture: None present. Paraspinal Soft Tissues: Unremarkable. Conus Medullaris: Termination at L1 level. Morphology is normal. L1/2: No significant abnormality. L2/3: Slight retrolisthesis. Broad disc bulge. Mild bilateral facet hypertrophy. Mild central canal stenosis is again noted without significant foraminal narrowing. L3/4: Disc desiccation and small disc bulge. Facet hypertrophy and ligamentum flavum thickening are noted. There is mild central canal stenosis without significant foraminal narrowing. L4/5: Slight spondylolisthesis. Disc degeneration with large diffuse disc bulge. Laminectomy changes are seen with decompression of the central canal. Facet hypertrophy contributes to mild bilateral foraminal stenosis. L5/S1: Marked disc degeneration with large disc bulge again noted. Bilateral facet hypertrophy. Interval laminectomy changes are noted with decompression of the central canal. Mild to moderate bilateral foraminal stenosis is similar. Posterior epidural enhancement is consistent with fibrosis. IMPRESSION: Interval postoperative changes of the lumbar spine with multilevel spondylosis as described. at 1302 Reported and signed by: Yuri Cordova M.D. CC: lAejandro Vázquez M.D. Technologist: Nani Duke(R) Transcribed D/ (3017) [facility] NAME: NELSY PEDRO [address] [facility] PHYS: Alejandro Bolivar MD : 1945 AGE: 73 SEX: M [place], [place] [address] LOC: Y.MRI PHONE #: [phone] EXAM DATE: 12/11/2018 STATUS: DEP CLI FAX #: [phone] RAD #: D/C DT PAGE 1 Signed Report Patient Name: NELSY PEDRO Unit No: [id number] EXAMS: CPT CODE: [id number] MRI L-SPINE W WO CON [address]184 <Continued> Orig Print D/T: S: 2018 (7629) [facility] NAME: NELSY PEDRO [address] [facility] PHYS: Alejandro Bolivar MD : 1945 AGE: 73 SEX: M [place] [address] LOC: Y.MRI PHONE #: [phone] EXAM DATE: 12/11/2018 STATUS: DEP CLI FAX #: [phone] RAD #: D/C DT PAGE 2 Signed Report - XR L-SPINE W/BEND [id number] 10:42:00 Patient Name: NELSY PEDRO Unit No: [id number] EXAMS: CPT CODE: [id number] XR L-SPINE W/BEND VIEW 45881 COMPARISON: Concurrent MRI. IMAGES PROVIDED: 8 FINDINGS: 5 lumbar type vertebrae. Laminectomy changes at L4 and L5 are noted. No abnormal motion with flexion/extension. No acute fracture. Disc degeneration is greatest at L4-L5 and L5-S1. Lower lumbar facet hypertrophy. Soft tissues are unremarkable. Bilateral total hip arthroplasties are partially visualized. IMPRESSION: Postoperative lumbar spine without evidence of dynamic instability. at 1042 Reported and signed by: Yuri Cordova M.D. CC: Alejandro Vázquez M.D. Technologist: Azeb Clinton RT.(R) Transcribed D/ (7737) [facility] NAME: NELSY PEDRO [address] [facility] PHYS: Alejandro Bolivar MD : 1945 AGE: 73 SEX: M [place] [address] LOC: Y.MRI PHONE #: [phone] EXAM DATE: 12/11/2018 STATUS: DEP CLI FAX #: [phone] RAD #: D/C DT PAGE 1 Signed Report Patient Name: NELSY PEDRO Unit No: [id number] EXAMS: CPT CODE: [id number] XR L-SPINE W/BEND VIEW 49346 <Continued> Orig Print D/T: S: 2018 (3670) [facility] NAME: NELSY PEDRO [address] [facility] PHYS: Alejandro Boggs MD : 1945 AGE: 73 SEX: M [place] [address] LOC: Y. MRI PHONE #: [phone] EXAM DATE: 12/11/2018 STATUS: DEP CLI FAX #: [phone] RAD #: D/C DT PAGE 2 Signed Report BLOOD UREA [id number] 11:58:00* Test Item Value Reference Range Comments BLOOD UREA NITROGEN (test code=BUN) 14 mg/dL 7-18 CREATININE W ESTIMATED [id number] 11:58:00* Test Item Value Reference Range Comments GLOMERULAR FILTRATION RATE (test code=GFR) 62.7 >60 Unit of measure: mL/min/1.73 [id number] Range:Healthy Adults >90 mL/min/1.73 m2 For Chronic Kidney Disease: Stage II Mild Decrease in GFR 60-90 Stage III Moderate Decrease in GFR 30-59 Stage IV Severe Decrease in GFR 15-29 Stage V Kidney Failure <15 CREATININE (test code=CREAT) 1.15 mg/dL 0.55-1.30 - CT HEAD/BRAIN W/O [id number] 15:49:00 Name: NELSY PEDRO [facility] : 1945 Age/S: 72 / M [address] [place] [address] Blvd Unit #: [id number] Loc: SH[place]ez [address] Phys: Katelynn Lamas MD Acct: [id number] Dis Date: Status: REG CLI PHONE #: [phone] Exam Date: 10/16/2018 1437 FAX #: [phone] Reason: R42, DIZZINESS. EXAMS: CPT CODE: [id number] CT HEAD/BRAIN W/O CONT 11232 CT head without contrast 10/16/2018 HISTORY: Dizziness PROCEDURE: Multiple axial images from the skull base to the skull vertex were obtained without contrast. Coronal and sagittal reconstructed images were performed. DLP: 1042 No prior exams are available for comparison FINDINGS: No acute hemorrhage, midline shift, extra-axial fluid collection, hydrocephalus, or mass lesion is present. No cortical hypodensity to suggest an acute infarct is noted. There is mild atrophy. There are mild white matter hypodensities. Distal internal carotid arterial calcifications are present. The visualized mastoid air cells are clear. There is no air-fl uid level in the visualized paranasal sinuses IMPRESSION: 1. No acute intracranial abnormality. 2. Mild atrophy and mild chronic microvascular ischemic changes SL: [id number] at 1549 Reported and signed by: Osiel Stringer M.D. CC: Kieran Dimas MD; Katelynn Wilson Technologist:Isaiah Ellison RT(R)(CT) CTDI: DLP: Trnscb Date/Time: 10/16/2018 (3307) [email or web address] Orig Print D/T: S: 10/16/2018 (8015) CTDI: DLP: PAGE 1 Signed Report BASIC METABOLIC [id number] 10:45:00* Test Item Value Reference Range Comments SODIUM (test code=NA) 141 mEq/L 134-147 POTASSIUM (test code=K) 3.8 mEq/L 3.4-5.0 CHLORIDE (test code=CL) 107 mEq/L 100-108 CARBON DIOXIDE (test code=CO2) 29 mEq/L 21-33 ANION GAP (test code=GAP) 9 0-20 GLUCOSE (test code=GLU) 100 mg/dL 70-110 BLOOD UREA NITROGEN (test code=BUN) 12 mg/dL 7-18 GLOMERULAR FILTRATION RATE (test code=GFR) 59.9 70-80 Units of measure=ml/min/1.73 m2 CREATININE (test code=CREAT) 1.2 mg/dL 0.6-1.3 CALCIUM (test code=CA) 8.9 mg/dL 8.0-10.5 PROTHROMBIN [id number] 10:29:00* Test Item Value Reference Range Comments PROTHROMBIN TIME PATIENT (test code=PTP) 13.9 SECONDS 9.3-12.9 INTERNATIONAL NORMAL RATIO (test code=INR) 1.2 0.8-1.2 TARGET INR BY INDICATION Indication INR1. Prophylaxis of venous thrombosis 2.0 - 3.0 (orthopedic surgery), Prophylaxis of venous thrombosis (other than high-risk surgery), Treatment of Deep Vein Thrombosis/Pulmonary Embolism, Prevention of systemic embolism - Tissue heart valves, Acute Myocardial Infarction (to prevent systemic embolism), Valvular heart disease, Atrial Fibrillation, Bileaflet mechanical valve in aortic position.2. Mechanical prosthetic valves (high risk), 2.5 - 3.5 Presence of Lupus Anticoagulant or Antiphospholipid Antibodies, Prevention of systemic embolism - Acute Myocardial Infarction (to prevent recurrent infarct). CBC W/AUTO [id number] 10:16:00* Test Item Value Reference Range Comments WHITE BLOOD CELL (test code=WBC) 7.02 x10 3/uL 4.5-11.0 RED BLOOD CELL (test code=RBC) 4.26 x10 6/uL 4.00-5.60 HEMOGLOBIN (test code=HGB) 12.2 g/dL 12.5-16.9 HEMATOCRIT (test code=HCT) 38.7 % 37.5-50.7 MEAN CELL VOLUME (test code=MCV) 90.8 fL 81.0-99.0 MEAN CELL HGB (test code=MCH) 28.6 pg 27.0-33.0 MEAN CELL HGB CONCETRATION (test code=MCHC) 31.5 g/dL 33.0-37.0 RED CELL DISTRIBUTION WIDTH CV (test code=RDW) 14.2 % 11.5-14.5 RED CELL DISTRIBUTION WIDTH SD (test code=RDW-SD) 47.0 fL 37.0-54.0 PLATELET COUNT (test code=PLT) 216 x10 3/uL 150-400 MEAN PLATELET VOLUME (test code=MPV) 9.9 fL 7.0-9.0 NEUTROPHIL % (test code=NT%) 67.2 % 56.0-77.0 IMMATURE GRANULOCYTE % (test code=IG%) 0.1 % 0.0-2.0 LYMPHOCYTE % (test code=LY%) 17.9 % 14.0-32.0 MONOCYTE % (test code=MO%) 10.8 % 4.8-9.0 EOSINOPHIL % (test code=EO%) 3.1 % 0.3-3.7 BASOPHIL % (test code=BA%) 0.9 % 0.0-2.0 NUCLEATED RBC % (test code=NRBC%) 0.0 % 0-0 NEUTROPHIL # (test code=NT#) 4.71 x10 3/uL 2.0-7.6 IMMATURE GRANULOCYTE # (test code=IG#) 0.01 x10 3/uL 0.00-0.03 LYMPHOCYTE # (test code=LY#) 1.26 x10 3/uL 1.0-3.8 MONOCYTE # (test code=MO#) 0.76 x10 3/uL 0.1-0.8 EOSINOPHIL # (test code=EO#) 0.22 x10 3/uL 0.0-0.2 BASOPHIL # (test code=BA#) 0.06 x10 3/uL 0.0-0.2 NUCLEATED RBC # (test code=NRBC#) 0.00 x10 3/uL 0.0-0.1 MANUAL DIFF REQUIRED (test code=MDIFF) NO - XR CHEST 2 [id number] 13:45:00 FAX: Kieran Morales MD [phone] [place]: St: PRE FAX: Katelynn Brewer MD [phone] Name: NELSY PEDRO [facility] [place] : 1945 Age/S: 72/M [address] [place] [address] Bl Unit #: [id number] Loc: [place] [address] Phys: Katelynn Lamas MD Acct: [id number] Dis Date: Status: PRE SDC PHONE #: [phone] Exam Date: 09/16/2018 1348 FAX #: [phone] Reason: PREOP EXAMS: CPT CODE: [id number] XR CHEST 2 V 97211 EXAM: CHEST TWO VIEW HISTORY: 72-year-old male for preoperative evaluation, history of coronary artery disease, chest pain COMPARISON: Chest radiograph 04/09/2018 FINDINGS: The lungs are clear. The cardiomediastinal silhouette is normal for projection. No acute osseous abnormality. Partially visualized cervical spinal hardware. IMPRESSION: 1. No acute cardiopulmonary abnormality. SL: [id number] at 4337 Reported and signed by: Karon Mota M.D. CC: Kieran Dimas MD; Katelynn Wilson Technologist: RT Jessica(R) Trnscrd Date/Time/By: 09/16/2018 (4445) : By: [email or web address] [facility] Print D/T: S: 09/16/2018 (7201) PAGE 1 Signed Report BASIC METABOLIC [id number] 11:49:00* Test Item Value Reference Range Comments SODIUM (test code=NA) 142 mEq/L 134-147 POTASSIUM (test code=K) 4.2 mEq/L 3.4-5.0 CHLORIDE (test code=CL) 110 mEq/L 100-108 CARBON DIOXIDE (test code=CO2) 28 mEq/L 21-33 ANION GAP (test code=GAP) 8 0-20 GLUCOSE (test code=GLU) 109 mg/dL 70-110 BLOOD UREA NITROGEN (test code=BUN) 11 mg/dL 7-18 GLOMERULAR FILTRATION RATE (test code=GFR) 66.2 70-80 Units of measure=ml/min/1.73 m2 CREATININE (test code=CREAT) 1.1 mg/dL 0.6-1.3 CALCIUM (test code=CA) 9.2 mg/dL 8.0-10.5 PROTHROMBIN [id number] 11:47:00* Test Item Value Reference Range Comments PROTHROMBIN TIME PATIENT (test code=PTP) 13.4 SECONDS 9.3-12.9 INTERNATIONAL NORMAL RATIO (test code=INR) 1.2 0.8-1.2 TARGET INR BY INDICATION Indication INR1. Prophylaxis of venous thrombosis 2.0 - 3.0 (orthopedic surgery), Prophylaxis of venous thrombosis (other than high-risk surgery), Treatment of Deep Vein Thrombosis/Pulmonary Embolism, Prevention of systemic embolism - Tissue heart valves, Acute Myocardial Infarction (to prevent systemic embolism), Valvular heart disease, Atrial Fibrillation, Bileaflet mechanical valve in aortic position.2. Mechanical prosthetic valves (high risk), 2.5 - 3.5 Presence of Lupus Anticoagulant or Antiphospholipid Antibodies, Prevention of systemic embolism - Acute Myocardial Infarction (to prevent recurrent infarct). CBC W/AUTO [id number] 11:33:00* Test Item Value Reference Range Comments WHITE BLOOD CELL (test code=WBC) 8.67 x10 3/uL 4.5-11.0 RED BLOOD CELL (test code=RBC) 4.53 x10 6/uL 4.00-5.60 HEMOGLOBIN (test code=HGB) 12.8 g/dL 12.5-16.9 HEMATOCRIT (test code=HCT) 41.0 % 37.5-50.7 MEAN CELL VOLUME (test code=MCV) 90.5 fL 81.0-99.0 MEAN CELL HGB (test code=MCH) 28.3 pg 27.0-33.0 MEAN CELL HGB CONCETRATION (test code=MCHC) 31.2 g/dL 33.0-37.0 RED CELL DISTRIBUTION WIDTH CV (test code=RDW) 14.1 % 11.5-14.5 RED CELL DISTRIBUTION WIDTH SD (test code=RDW-SD) 46.3 fL 37.0-54.0 PLATELET COUNT (test code=PLT) 224 x10 3/uL 150-400 MEAN PLATELET VOLUME (test code=MPV) 9.9 fL 7.0-9.0 NEUTROPHIL % (test code=NT%) 71.9 % 56.0-77.0 IMMATURE GRANULOCYTE % (test code=IG%) 0.3 % 0.0-2.0 LYMPHOCYTE % (test code=LY%) 15.1 % 14.0-32.0 MONOCYTE % (test code=MO%) 9.8 % 4.8-9.0 EOSINOPHIL % (test code=EO%) 2.2 % 0.3-3.7 BASOPHIL % (test code=BA%) 0.7 % 0.0-2.0 NUCLEATED RBC % (test code=NRBC%) 0.0 % 0-0 NEUTROPHIL # (test code=NT#) 6.23 x10 3/uL 2.0-7.6 IMMATURE GRANULOCYTE # (test code=IG#) 0.03 x10 3/uL 0.00-0.03 LYMPHOCYTE # (test code=LY#) 1.31 x10 3/uL 1.0-3.8 MONOCYTE # (test code=MO#) 0.85 x10 3/uL 0.1-0.8 EOSINOPHIL # (test code=EO#) 0.19 x10 3/uL 0.0-0.2 BASOPHIL # (test code=BA#) 0.06 x10 3/uL 0.0-0.2 NUCLEATED RBC # (test code=NRBC#) 0.00 x10 3/uL 0.0-0.1 MANUAL DIFF REQUIRED (test code=MDIFF) NO NM BONE SPECT SCANCLINICAL INDICATION: M47.817 Spondyls w/o myelopathy or radiculopathy, lumbosacr regionMODALITY: [employer] dual head gamma cameraTECHNIQUE: 25 mCi Tc 99m MDP are injected IV. After a suitable time delay, whole body imaging images were obtained. SPECT imaging of the lumbar spine is performed with computer and physician-assisted 2-D and 3-D reconstruction.FINDINGS:COMPARISON: Lumbar spine series performed 11/19/2017:Five lumbar type vertebra are present. Mild L4-5 disc space narrowing, mild to moderate L5-S1 disc space narrowing. No measurable spo ndylolisthesis. No evidence of dynamic instability. Bilateral total hips are see n. SI joints are diffusely narrowed with subchondral sclerosis characterized as mild to moderate.Symmetric bilateral renal function is observed.Mild to moderate periodontal uptake is noted, right maxilla and bilateral mandible. Mild to mode rate arthritic changes are seen at the acromioclavicular, glenohumeral, sternocl avicular joints bilaterally. Mild to moderate uptake left wrist. Moderate uptake right heel. There is mild to moderate left C4-5 facet, right C4-5 facet activit y.SPECT imaging of the lumbar spine demonstrates mild uptake to be present at th e L5-S1 intervertebral disc, mild uptake to be present at the L4-5 facet bilater ally. Mild to moderate symmetric uptake is seen at the SI joints.IMPRESSION:See comments above.PQRS 147: 3570F
[2019-05-01 09:30] VITALS: BP 145/76
== END | disposition home or self-care (01) ==
LOC: OR 06:52
PROVIDERS: ATTEND Internal Medicine Gastroenterology
DX: Z09 Encounter for follow-up examination after completed treatment for conditions other than malignant neoplasm (principal); K63.5 Polyp of colon; K64.8 Other hemorrhoids; K21.9 Gastro-esophageal reflux disease without esophagitis; G47.33 Obstructive sleep apnea (adult) (pediatric); J44.9 Chronic obstructive pulmonary disease, unspecified; I25.10 Atherosclerotic heart disease of native coronary artery without angina pectoris; I25.2 Old myocardial infarction; I10 Essential (primary) hypertension; Z01.810 Encounter for preprocedural cardiovascular examination; Z01.812 Encounter for preprocedural laboratory examination; Z79.02 Long term (current) use of antithrombotics/antiplatelets; Z79.82 Long term (current) use of aspirin; Z95.5 Presence of coronary angioplasty implant and graft; Z87.891 Personal history of nicotine dependence; Z80.0 Family history of malignant neoplasm of digestive organs
CPT/HCPCS: 36415; 45385; 85025; 88305; 93005; J2001; J2250; J2704; 45378; 45380

== ENCOUNTER → 2020-08-12 | Day surgery (SDC) | payer MEDICARE, OTHER ==
[2020-08-09 09:17] LABS: BASOPHILS # (AUTO) 0.1 (0.0-0.1); BASOPHILS % 0.8 % (0.0-1.0); EOSINOPHILS # (AUTO) 0.2 (0.0-0.4); EOSINOPHILS % 2.4 % (0.0-6.0); HEMATOCRIT 37.3 % (38.2-49.6); HEMOGLOBIN 11.7 g/dL (14.0-18.0); LYMPHOCYTES # (AUTO) 1.5 (1.0-3.2); LYMPHOCYTES % 17.8 % (18.0-39.1); MEAN CORPUSCULAR HEMOGLOBIN 27.7 pg (28-32); MEAN CORPUSCULAR HGB CONC 31.4 g/dL (31-35); MEAN CORPUSCULAR VOLUME 88.4 fL (81-99); MONOCYTES % 12.1 % (4.4-11.3); NEUTROPHILS # (AUTO) 5.6 (2.1-6.9); NEUTROPHILS % 66.5 % (38.7-80.0); PLATELET COUNT 202 x10e3/uL (140-360); RED BLOOD COUNT 4.22 x10e6/uL (4.3-5.7); RED CELL DISTRIBUTION WIDTH 15.3 % (11.7-14.4)
[~2020-08-12] MED LIST changes: -MIDAZOLAM HCL 2 MG/2 ML VIAL ONE; +PROPOFOL IV EMULSION 10 MG/ML 20 ML VIAL ONE; -PROPOFOL IV EMULSION 10 MG/ML 50 ML VIAL ONE
[2020-08-12 10:45] VITALS: BP 117/61
== END | disposition home or self-care (01) ==
LOC: OR 06:36
PROVIDERS: ATTEND Internal Medicine Gastroenterology
DX: K29.50 Unspecified chronic gastritis without bleeding (principal); K44.9 Diaphragmatic hernia without obstruction or gangrene; K21.9 Gastro-esophageal reflux disease without esophagitis; Z71.3 Dietary counseling and surveillance; G47.33 Obstructive sleep apnea (adult) (pediatric); J44.9 Chronic obstructive pulmonary disease, unspecified; I25.10 Atherosclerotic heart disease of native coronary artery without angina pectoris; E78.00 Pure hypercholesterolemia, unspecified; R00.1 Bradycardia, unspecified; I25.2 Old myocardial infarction; I10 Essential (primary) hypertension; H91.90 Unspecified hearing loss, unspecified ear; E66.9 Obesity, unspecified; Z01.810 Encounter for preprocedural cardiovascular examination; Z01.812 Encounter for preprocedural laboratory examination; Z20.822 Contact with and (suspected) exposure to COVID-19; Z79.82 Long term (current) use of aspirin; Z68.33 Body mass index [BMI] 33.0-33.9, adult; Z95.5 Presence of coronary angioplasty implant and graft; Z86.73 Personal history of transient ischemic attack (TIA), and cerebral infarction without residual deficits; Z87.891 Personal history of nicotine dependence; Z80.0 Family history of malignant neoplasm of digestive organs
CPT/HCPCS: 36415; 43239; 85025; 93005; J2001; J2704; U0002